=== PATIENT | male | born 1950 | race Caucasian/White ===

== ENCOUNTER 2017-05-09 10:31 | Outpatient (CLI) | payer MEDICARE, OTHER ==
--- NOTE | 2017-05-09 15:28 | Ultrasound Report ---
CAROTID DUPLEX: 05/09/2017 CLINICAL INDICATION: Hypertension. TECHNIQUE: Real-time sonographic vascular imaging was performed by the military police officer through the carotid arteries utilizing both color-flow and Doppler spectral analysis. Multiple abrasives sales representative static images were saved for review. RIGHT Vessel PSV cm/sec EDV cm/sec ICA/CCA RSV Ratio Degree of Stenosis Plaque Estimate % RCCA Prox 60 -- -- RCCA Dist 72 22 -- RECA 78 -- -- RT BULB 38 10 0.52 CHRISTINA Prox 57 23 0.79 CHRISTINA Mid 47 20 0.65 CHRISTINA Dist 31 15 0.43 RVA 33 -- -- RVA flow direction: Antegrade LEFT Vessel PSV cm/sec EDV cm/sec ICA/CCA RSV Ratio Degree of Stenosis Plaque Estimate % LCCA Prox 62 -- -- LCCA Dist 65 23 -- LECA 68 -- -- LFT BULB 39 10 0.60 LICA Prox 63 29 0.96 LICA Mid 62 20 0.95 LICA Dist 44 17 0.67 LVA 35 -- -- LVA flow direction: Antegrade Velocity criteria are extrapolated from diameter data as defined by the Society of Radiologists in Ultrasound Consensus Conference Radiology 2003; 229; 340-346. Degree of Stenosis % ICA PSV cm/sec ICA/CCA RSV Ratio ICA EDV cm/sec Plaque Estimate % Normal < 125 < 40 < 2.0 None <50 < 125 <40 < 2.0 < 50 50-69 125-130 40-100 2.0-4.0 >/=50 >/=70 but less than near occlusion > 230 > 100 > 4.0 >/=50 Near occlusion High, low or undetectable Variable Variable Visible Total occlusion Undetectable Not applicable Not applicable No detectable lumen FINDINGS RIGHT: There is no plaquing in the right carotid bifurcation or proximal internal carotid artery. No significant stenosis is seen. LEFT: There is mild plaquing in the left carotid bifurcation without evidence of a focal hemodynamically significant stenosis. The vertebral arteries demonstrate antegrade flow bilaterally. IMPRESSION: MILD PLAQUING, BUT NO EVIDENCE OF A FOCAL HEMODYNAMICALLY SIGNIFICANT CAROTID STENOSIS. TD: 05/09/2017 13:41 [facility]
== END 2017-05-09 10:32 | disposition home or self-care (01) ==
LOC: DI 10:31
PROVIDERS: ATTEND Internal Medicine
DX: I10 Essential (primary) hypertension (principal)
CPT/HCPCS: 93880

== ENCOUNTER 2023-12-19 07:12 | Outpatient (CLI) | payer MEDICARE | END 2023-12-19 23:59 | disposition critical access hospital (66) | LOC: EMS 07:12 | DX: K92.1 Melena (principal); R61 Generalized hyperhidrosis; R42 Dizziness and giddiness; Z91.81 History of falling | CPT/HCPCS: A0425; A0427 ==

== ENCOUNTER 2023-12-19 07:49 | Emergency (ER) | payer MEDICARE ==
[2023-12-19] MEDS ORDERED: PANTOPRAZOLE 40 MG VIAL IVP STA (08:10)
--- NOTE | 2023-12-19 08:14 | ED Physician Documentation ---
History of Present Illness - Stated complaint Stated Complaint: GI - Chief complaint Chief Complaint: Abd Pain - History obtained from History obtained from: Patient - Additonal information Additional information: The patient comes to the emergency department chief complaint of black stools for the last couple of days. He denies any abdominal pain. He states that initially, they seemed "tarry" but now they are loose. He thought he noticed some reddish residue on the outside of the stool, in addition to the black appearance. This is just been today. The patient denies taking any iron pills or Pepto-Bismol. He did eat some beets 3 days ago. He drinks anywhere from 2 glasses of wine to a whole bottle of wine each day, and has a strong family history of colon cancer, but has never himself been diagnosed with gastritis or ulcers. He does take [place] each night because of indigestion. He denies NSAID use but does take Tylenol. He is not on any anticoagulants. He has been screened with EGD and colonoscopy every 2 years, with no evidence of cancer. The patient states that he has otherwise been feeling just fine and denies any near syncope or significant lightheadedness. He does note he did not drink any water overnight or today and felt slightly lightheaded this morning, but otherwise has felt normal. No other complaints at this time. No nausea or vomiting. PD PAST MEDICAL HISTORY - Past Medical History Cardiovascular: High cholesterol - Past Surgical History Past Surgical History: No - Present Medications Home Medications: Ambulatory Orders Medication Instructions Recorded Confirmed Rosuvastatin Calcium 10 mg PO DAILY 12/19/23 12/19/23 - Allergies Allergies/Adverse Reactions: Allergies Allergy/AdvReac Type Severity Reaction Status Date / Time No Known Drug Allergies Allergy Verified 12/19/23 07:58 - Social History Does the pt smoke?: No Smoking Status: Never smoker Does the pt drink ETOH?: Yes ETOH Use: Wine Does the pt have substance abuse?: No - Immunizations Immunizations are current?: No Immunizations: TDAP >10years/unknown PD ED PE NORMAL - Vitals Vital signs reviewed: Yes - General General: Alert and oriented X 3, No acute distress - HEENT HEENT: Atraumatic, EOMI, Moist mucous membranes - Neck Neck: Supple, no meningeal sign - Cardiac Cardiac: RRR, No murmur - Respiratory Respiratory: No respiratory distress, Clear bilaterally - Abdomen Abdomen: Soft, Non tender, Non distended - Derm Derm: Normal color, Warm and dry, No rash - Extremities Extremities: No deformity - Neuro Neuro: Alert and oriented X 3 - Psych Psych: Normal mood, Normal affect Results - Vitals Vitals: Vital Signs - 24 hr 12/19/23 07:51 Temperature 36.2 C L Heart Rate 88 Respiratory 18 Rate Blood Pressure 134/91 H O2 Saturation 99 Oxygen O2 Source Room air - Labs Labs: Microbiology 12/19/23 08:30 Occult Blood - Final Stool Laboratory Tests 12/19/23 12/19/23 12/19/23 08:07 08:07 08:07 WBC 5.2 RBC 2.73 L Hgb 8.5 L Hct 25.9 L MCV 94.9 H MCH 31.1 H MCHC 32.8 RDW 13.0 Plt Count 177 MPV 9.5 Neut # (Auto) 3.5 Lymph # (Auto) 1.2 L [place] # (Auto) 0.4 Eos # (Auto) 0.1 Baso # (Auto) 0.0 Absolute Nucleated RBC 0.00 Nucleated RBC % 0.0 PT 13.2 H INR 1.2 Sodium 139 Potassium 4.5 Chloride 109 Carbon Dioxide 28 Anion Gap 2.0 L BUN 33 H Creatinine 0.8 Estimated GFR (MDRD) 95 Glucose 133 H Calcium 8.2 L Total Bilirubin 0.3 AST 14 ALT 12 Alkaline Phosphatase 26 L Total Protein 5.3 L Albumin 3.5 Globulin 1.8 L Albumin/Globulin Ratio 1.9 Lipase 48 Ethyl Alcohol 12/19/23 08:07 WBC RBC Hgb Hct MCV MCH MCHC RDW Plt Count MPV Neut # (Auto) Lymph # (Auto) Highlands # (Auto) Eos # (Auto) Baso # (Auto) Absolute Nucleated RBC Nucleated RBC % PT INR Sodium Potassium Chloride Carbon Dioxide Anion Gap BUN Creatinine Estimated GFR (MDRD) Glucose Calcium Total Bilirubin AST ALT Alkaline Phosphatase Total Protein Albumin Globulin Albumin/Globulin Ratio Lipase Ethyl Alcohol < 10.0 PD Medical Decision Making - ED course Complexity details: reviewed results, re-evaluated patient, considered differential, d/w patient ED course: The patient was worked up with labs. He was Given IV Protonix and treated with a liter of fluid. The patient was found to have a hemoglobin of 8.5 but otherwise, labs look fairly good. I spoke with Dr. Guadalupe Jimenez, the patient's primary care physician who is also a hospitalist. We discussed the specifics of the patient's case including that he is hemodynamically stable and his hemoglobin is 8.5, which is apparently down from 15 at some point in the past, though it is not clear exactly how long ago this was. She voiced her concern about possible variceal bleed and we discussed whether admission here or transfer would be a viable. Unfortunately, because the patient is very stable, asymptomatic other than the maroon stools, and has a hemoglobin that is not within emergent transfusion range, absent signs Or symptoms raising concern for acute hemorrhage and hemorrhagic shock, it would be very difficult if not impossible to get this patient transferred, given that we have much more acute patients that are also in her ED awaiting transfer and have been here for days, due to hospital volumes. Dr. Hurtado understands and has stated that she would like the patient to come see her in her clinic this afternoon and she would decide whether he should be admitted to the hospital. I have discussed this plan with the patient who remains hemodynamically stable and well-appearing. He is agreeable to the plan. He has a ride down to [place] and will go there immediately from our emergency department. Departure - Departure Disposition: 01 Home, Self Care Clinical Impression: Upper GI bleed Anemia Qualifiers: Anemia type: unspecified type Qualified Code(s): D64.9 - Anemia, unspecified Condition: Stable Instructions: ED Bleed UGI Stable Comments: I have discussed your case with Dr. Jimenez, who would like you to come straight to her office today. Please go straight there after leaving our emergency department. Forms: PCP List
[2023-12-19 08:17] LABS: BASOPHILS % (AUTO) 0.6 %; EOSINOPHILS # (AUTO) 0.1 10^3/uL (0.0-0.7); HCT - HEMATOCRIT 25.9 % (42.0-52.0); HGB - HEMOGLOBIN 8.5 g/dL (14.0-18.0); LYMPHOCYTES # (AUTO) 1.2 10^3/uL (1.5-3.5); LYMPHOCYTES % (AUTO) 22.5 %; MEAN CORPUSCULAR HEMOGLOBIN 31.1 pg (27.0-31.0); MEAN CORPUSCULAR HGB CONC 32.8 g/dL (32.0-36.0); MEAN CORPUSCULAR VOLUME 94.9 fL (80.0-94.0); MEAN PLATELET VOLUME 9.5 fL (7.4-11.4); MONOCYTES # (AUTO) 0.4 10^3/uL (0.0-1.0); MONOCYTES % (AUTO) 7.8 %; NEUTROPHILS # (AUTO) 3.5 10^3/uL (1.5-6.6); NEUTROPHILS % (AUTO) 67.5 %; PLT - PLATELET COUNT 177 10^3/uL (130-450); RED BLOOD COUNT 2.73 10^6/uL (4.70-6.10); WHITE BLOOD COUNT 5.2 x10^3/uL (4.8-10.8)
[2023-12-19 08:25] LABS: INR 1.2 (0.8-1.2); PT - PROTHROMBIN TIME 13.2 secs (9.9-12.6)
[2023-12-19 08:34] LABS: ALBUMIN 3.5 g/dL (3.2-5.5); ALBUMIN/GLOBULIN RATIO 1.9 (1.0-2.2); BILIRUBIN,TOTAL 0.3 mg/dL (0.2-1.0); CALCIUM 8.2 mg/dL (8.5-10.3); CREATININE 0.8 mg/dL (0.6-1.3); POTASSIUM 4.5 mmol/L (3.5-4.5); TOTAL PROTEIN 5.3 g/dL (6.4-8.9)
[2023-12-19] MEDS: PANTOPRAZOLE 40 MG VIAL IVP STA (10:08)
[2023-12-19] MEDS: SODIUM CHLORIDE 0.9% 1,000 ML IV STA (10:08)
[2023-12-19 10:20] VITALS: BP 121/97; O2SAT 100
== END 2023-12-19 10:30 | disposition home or self-care (01) ==
LOC: ED 07:49
DX: K92.2 Gastrointestinal hemorrhage, unspecified (principal); D64.9 Anemia, unspecified; E78.00 Pure hypercholesterolemia, unspecified; Z80.0 Family history of malignant neoplasm of digestive organs
CPT/HCPCS: 36415; 80053; 82272; 83690; 85025; 85610; 96374; 99283; 99284; G0480; 82077